=== PATIENT | female | born 1960 | race Caucasian/White ===

== ENCOUNTER → 2017-07-26 07:38 | Outpatient (CLI) | payer BC ==
[2017-07-27 11:10] LABS: HEPATITIS C ANTIBODY <0.1 (0.0-0.9)
== END | disposition home or self-care (01) ==
LOC: D.US 07:38
PROVIDERS: Internal Medicine Gastroenterology
DX: R79.89 Other specified abnormal findings of blood chemistry (principal)

== ENCOUNTER → 2018-02-14 09:05 | Outpatient (CLI) | payer BC ==
[2018-02-14 10:21] LABS: ALBUMIN 3.7 g/dL (3.4-5.0); BILIRUBIN - DIRECT 0.16 mg/dL (0.00-0.30); BILIRUBIN - INDIRECT 0.66 mg/dL (0.00-1.00); BILIRUBIN - TOTAL 0.82 mg/dL (0.2-1.3); PROTEIN - SERUM 7.8 g/dL (6.4-8.2)
== END | disposition home or self-care (01) ==
LOC: D.US 02-03 09:00 → D.LAB 02-03 09:30 → D.US 09:05
PROVIDERS: Internal Medicine Gastroenterology
DX: K76.0 Fatty (change of) liver, not elsewhere classified (principal)

== ENCOUNTER → 2018-08-18 08:53 | Outpatient (CLI) | payer BC ==
[2018-08-18 10:24] LABS: ALBUMIN 3.9 g/dL (3.4-5.0); BILIRUBIN - DIRECT 0.17 mg/dL (0.00-0.30); BILIRUBIN - INDIRECT 0.68 mg/dL (0.00-1.00); BILIRUBIN - TOTAL 0.85 mg/dL (0.2-1.3); PROTEIN - SERUM 7.9 g/dL (6.4-8.2)
== END | disposition home or self-care (01) ==
LOC: D.US 08:53
PROVIDERS: Internal Medicine Gastroenterology
DX: K76.0 Fatty (change of) liver, not elsewhere classified (principal)

== ENCOUNTER → 2019-03-06 09:07 | Outpatient (CLI) | payer BC ==
[2019-03-06 10:19] LABS: ALBUMIN 3.9 g/dL (3.4-5.0); BILIRUBIN - DIRECT 0.16 mg/dL (0.00-0.30); BILIRUBIN - INDIRECT 0.36 mg/dL (0.00-1.00); BILIRUBIN - TOTAL 0.52 mg/dL (0.2-1.3)
== END | disposition home or self-care (01) ==
LOC: D.US 09:07
PROVIDERS: ATTEND Internal Medicine Gastroenterology
DX: K76.0 Fatty (change of) liver, not elsewhere classified (principal)

== ENCOUNTER → 2019-05-25 15:27 | Outpatient (CLI) | payer BC ==
[2019-05-25 16:01] LABS: BASOPHILS 0.6 % (0-2); EOSINOPHILS 9.1 % (0-7); HEMATOCRIT 39.4 % (36.0-48.0); HEMOGLOBIN 13.2 g/dL (12-16); IMMATURE GRANULOCYTES 0.3 % (0-5); LYMPHOCYTES 28.5 % (15-50); MCH 29.5 pg (26.0-34.0); MCHC 33.5 g/dL (31.0-37.0); MCV 88.1 fL (80.0-100.0); MEAN PLATELET VOLUME 8.7 fL (7.4-10.4); MONOCYTES 8.2 % (2-11); NEUTROPHILS 53.3 % (40-80); PLATELET COUNT 352 10x3/uL (130-400); RBC 4.47 10x6/uL (4.00-5.40); RDW 13.7 % (11.5-14.5); WBC 9.6 10x3/uL (4.8-10.8)
[2019-05-25 16:18] LABS: APTT 25.6 SECONDS (22.8-39.4); INR 0.99 (0.85-1.17); PROTIME 12.6 SECONDS (11.6-15.0)
[2019-05-25 16:37] LABS: % SATURATION 16 % (15-55); IRON 63 ug/dl (35-150); TOTAL IRON BIND CAPACITY 390 ug/dl (260-445); UNSAT IRON BIND CAPACITY 327 ug/dl (150-375)
[2019-05-26 15:12] LABS: ANA REFLEX - ANTICHROMATIN ABS <0.2 AI (0.0-0.9); ANA REFLEX - CENTROMERE B ABS 2.1 AI (0.0-0.9); ANA REFLEX - DBL STRANDED DNA <1 IU/mL (0-9); ANA REFLEX - DIRECT Positive (Negative); ANA REFLEX - JO-1 AB <0.2 AI (0.0-0.9); ANA REFLEX - RNP ANTIBODIES 0.9 AI (0.0-0.9); ANA REFLEX - SCL-70 <0.2 AI (0.0-0.9); ANA REFLEX - SJOGRENS AB SSA 5.7 AI (0.0-0.9); ANA REFLEX - SJOGRENS AB SSB <0.2 AI (0.0-0.9); ANA REFLEX - SMITH AB <0.2 AI (0.0-0.9)
[2019-05-27 12:12] LABS: MITOCHONDRIAL ANTIBODY <20.0 Units (0.0-20.0)
== END | disposition home or self-care (01) ==
LOC: D.LAB 15:27
PROVIDERS: ATTEND Internal Medicine Gastroenterology
DX: K76.0 Fatty (change of) liver, not elsewhere classified (principal); R94.5 Abnormal results of liver function studies

== ENCOUNTER → 2019-09-04 08:42 | Outpatient (CLI) | payer BC ==
[2019-09-04 09:44] LABS: BILIRUBIN - DIRECT 0.14 mg/dL (0.00-0.30); BILIRUBIN - INDIRECT 0.59 mg/dL (0.00-1.00); BILIRUBIN - TOTAL 0.73 mg/dL (0.2-1.3); PROTEIN - SERUM 8.3 g/dL (6.4-8.2)
== END | disposition home or self-care (01) ==
LOC: D.US 08:42
PROVIDERS: ATTEND Internal Medicine Gastroenterology
DX: K76.0 Fatty (change of) liver, not elsewhere classified (principal)

== ENCOUNTER → 2020-05-23 11:32 | Outpatient (CLI) | payer BC ==
[2020-05-23 12:42] LABS: ALBUMIN 4.3 g/dL (3.4-5.0); BILIRUBIN - DIRECT 0.25 mg/dL (0.00-0.30); BILIRUBIN - INDIRECT 0.69 mg/dL (0.00-1.00); BILIRUBIN - TOTAL 0.94 mg/dL (0.2-1.3); PROTEIN - SERUM 7.7 g/dL (6.4-8.2)
== END | disposition home or self-care (01) ==
LOC: D.LAB 05-11 08:00 → D.US 05-11 10:30 → D.LAB 11:15
PROVIDERS: ATTEND Internal Medicine Gastroenterology
DX: K76.0 Fatty (change of) liver, not elsewhere classified (principal)

== ENCOUNTER 2020-07-15 07:38 | Day surgery (SDC) | payer BC ==
[~2020-07-15] VITALS: Ht 162.6 cm; Wt 107.3 kg
[2020-07-15 08:17] LABS: BASOPHILS 0.6 % (0-2); EOSINOPHILS 4.1 % (0-7); HEMATOCRIT 41.3 % (36.0-48.0); HEMOGLOBIN 13.4 g/dL (12-16); IMMATURE GRANULOCYTES 0.1 % (0-5); LYMPHOCYTES 25.1 % (15-50); MCH 29.3 pg (26.0-34.0); MCHC 32.4 g/dL (31.0-37.0); MCV 90.4 fL (80.0-100.0); MEAN PLATELET VOLUME 8.7 fL (7.4-10.4); NEUTROPHILS 62.1 % (40-80); PLATELET COUNT 338 10x3/uL (130-400); RBC 4.57 10x6/uL (4.00-5.40); RDW 13.4 % (11.5-14.5); WBC 8.4 10x3/uL (4.8-10.8)
[2020-07-15 08:27] LABS: CALC OSMOLALITY 280 mosm/kg (275-300); CALCIUM 9.4 mg/dL (8.5-10.1); CARBON DIOXIDE 29.1 mmol/L (21.0-32.0); CHLORIDE - SERUM 102 mmol/L (98-107); CREATININE - SERUM 0.8 mg/dL (0.6-1.3); GLUCOSE 117 mg/dL (74-106); POTASSIUM - SERUM 3.7 mmol/L (3.5-5.1); SODIUM 140 mmol/L (136-145); UREA NITROGEN 14 mg/dL (7-18); eGFR NON AFRICAN AMERICAN 77 mL/min (90-120)
[2020-07-15 08:30] LABS: APTT 30.2 SECONDS (22.8-39.4); INR 0.93 (0.85-1.17); PROTIME 12.5 SECONDS (11.6-15.0)
[2020-07-15] MEDS ORDERED: POLY-VI-SOL W/I50 ML PO (08:53)
[2020-07-15] MEDS ORDERED: SYNTHROID100 MCG PO (08:53)
[2020-07-15] MEDS ORDERED: AVAPRO150 MG PO (08:54)
[2020-07-15] MEDS ORDERED: BAYER CHEWABLE81 MG PO (08:54)
[2020-07-15] MEDS ORDERED: LIPITOR20 MG PO (08:54)
[2020-07-15] MEDS ORDERED: CO Q-10200 MG (08:54)
[2020-07-15] MEDS ORDERED: HYDROCHLOROTH12.5 M1 PO (08:54)
[2020-07-15] MEDS ORDERED: GLUCOPHAGE1000 MG PO (08:55)
[2020-07-15 09:00] VITALS: BP 167/90; Ht 162.6 cm; Wt 107.3 kg
--- NOTE | 2020-07-15 12:43 | NUR ---
1220 IV REMOVED AND PRESSURE HELD, INSTRUCTIONS GIVEN TO PT AND FAMILY.
== END 2020-07-15 12:43 | disposition home or self-care (01) ==
LOC: D.SP 07:38 → D.CT 10:00 → D.SP 10:00
PROVIDERS: Specialist; ATTEND Internal Medicine Gastroenterology
DX: K76.0 Fatty (change of) liver, not elsewhere classified (principal); R74.8 Abnormal levels of other serum enzymes

== ENCOUNTER → 2020-08-08 15:02 | Outpatient (CLI) | payer BC ==
[2020-07-15 09:00] VITALS: BMI 40.6
[~2020-08-08 15:02] MED LIST: AVAPRO150 MG PO; BAYER CHEWABLE81 MG PO; CO Q-10200 MG; GLUCOPHAGE1000 MG PO; HYDROCHLOROTH12.5 M1 PO; LIPITOR20 MG PO; POLY-VI-SOL W/I50 ML PO; SYNTHROID100 MCG PO
== END | disposition home or self-care (01) ==
LOC: D.LAB 15:02
PROVIDERS: ATTEND Internal Medicine Gastroenterology
DX: K76.0 Fatty (change of) liver, not elsewhere classified (principal)

== ENCOUNTER → 2021-05-19 09:07 | Outpatient (CLI) | payer BC ==
[2020-07-15 09:00] VITALS: BMI 40.6
[2021-05-19 09:58] LABS: ALBUMIN 4.3 g/dL (3.4-5.0); BILIRUBIN - DIRECT 0.17 mg/dL (0.00-0.30); BILIRUBIN - INDIRECT 0.69 mg/dL (0.00-1.00); BILIRUBIN - TOTAL 0.86 mg/dL (0.2-1.3); PROTEIN - SERUM 8.1 g/dL (6.4-8.2)
== END | disposition home or self-care (01) ==
LOC: D.US 08:00
PROVIDERS: ATTEND Internal Medicine Gastroenterology
DX: K76.0 Fatty (change of) liver, not elsewhere classified (principal)